=== PATIENT | male | born 1945 | race Caucasian/White ===

== ENCOUNTER 2021-04-09 12:58 | Inpatient (IN) | payer MEDICARE, OTHER ==
[2021-04-09] MEDS ORDERED: SODIUM CHLORIDE 0.9% 1,000 ML IV ONE (13:40)
[2021-04-09] MEDS ORDERED: SODIUM CHLORIDE 0.9% 500 ML 500 ML IV ONE (13:40)
--- NOTE | 2021-04-09 13:45 | ED ---
General Adult HPI - General Chief complaint: Altered Mental Status Stated complaint: hallucinations Time Seen by Provider: 04/09/21 13:35 Source: patient, EMS Mode of arrival: EMS Limitations: altered mental status - History of Present Illness Initial comments: This 76-year-old male presents with a complaint of having some visual hallucinations. He states that it has been present for the last 1 month. He denies any previous similar incidents. He states that he realizes that the things that he is seeing is not actually there. He denies any auditory hallucinations. He lives by himself and called EMS as he realized that something was not quite right. He does have a history of Parkinson's disease. He denies any headaches or head injury. He denies any chest pain, shortness breath, abdominal pain, or urinary symptoms. There is been no fevers or chills. He feels fine otherwise. No other complaints or modifying factors. - Related Data Home Medications Medication Instructions Recorded Confirmed Ascorbic Acid [Vitamin C] 500 mg PO DAILY 04/09/21 04/09/21 Carbidopa-Levodopa 25-100 mg 1 tab PO 5XD 04/09/21 04/09/21 [Sinemet 25-100] Vitamin D3(Unknown Dose) 1 tab PO DAILY 04/09/21 04/09/21 amantadine HCL [Amantadine] 100 mg PO BID 04/09/21 04/09/21 Allergies Allergy/AdvReac Type Severity Reaction Status Date / Time No Known Allergies Allergy Verified 04/09/21 14:59 Review of Systems ROS Statement: Those systems with pertinent positive or pertinent negative responses have been documented in the HPI. ROS Other: All systems not noted in ROS Statement are negative. Past Medical History Additional Past Medical History / Comment(s): Parkinson's History of Any Multi-Drug Resistant Organisms: None Reported Past Surgical History: Hernia Repair Past Psychological History: No Psychological Hx Reported Smoking Status: Never smoker Past Alcohol Use History: None Reported Past Drug Use History: None Reported General Exam - General Exam Comments Initial Comments: GENERAL: The patient is well nourished and well hydrated. VITAL SIGNS: Heart rate, blood pressure, respiratory rate reviewed as recorded in nurse's notes. EYES: Pupils are round and reactive. Extraocular movements are intact. No conjunctival / lid redness or swelling. ENT: No external evidence of injury, swelling, or ecchymosis. Airway is patent. Throat is clear. NECK: Nontender. No swelling or evidence of injury. No subcutaneous emphysema. Trachea is midline. No thyroid mass. HEART: Regular rate and rhythm. Good peripheral pulses. LUNGS/CHEST: Breath sounds clear and equal bilaterally. No rales, rhonchi, or wheezes. No ecchymosis, subcutaneous emphysema, or tenderness. ABDOMEN: Abdomen soft without tenderness. No palpable masses or organomegaly. No peritoneal signs. No abdominal wall swelling or ecchymosis. EXTREMITIES: No extremity tenderness. Normal muscle tone and function. No thoracolumbar tenderness. NEUROLOGIC: Sensation is grossly intact. Cranial nerve exam reveals face is symmetrical, tongue is midline, speech is clear. SKIN: No abrasions or ecchymosis is noted. No induration or masses noted. PSYCHIATRIC: Alert and oriented. Appropriate behavior and judgment. Limitations: altered mental status Course Vital Signs 04/09/21 04/09/21 13:02 16:12 Temperature 98.4 F Pulse Rate 97 97 Respiratory 18 18 Rate Blood Pressure 168/102 183/97 O2 Sat by Pulse 97 95 Oximetry Medical Decision Making - Medical Decision Making The patient was seen and examined. All diagnostics are reviewed. An IV is established and he is hydrated. The white blood cell count is slightly elevated but remainder of labs are essentially within normal limits. The urine is clear. The computed tomography scan of brain does not show any acute process. The EKG is completed and shows a sinus tachycardia at a rate of 102. There is no acute ST-T wave changes identified with mild artifact. The AK intervals 196, QRS duration is 74, and the QTC intervals 437. The exact cause of his hallucinations are not definitively determined. Overall, it is felt as though he would benefit from admission for further evaluation. Case is discussed with Dr. Friedman who does evaluate patient in the emergency department. He is admitted to his service with psychiatry to consult. The possibility of early dementia associated with his Parkinson's disease is certainly contemplated. He may benefit from some medication therapy as felt necessary per psychiatry. - Lab Data Result diagrams: 04/09/21 14:09 04/09/21 14:09 Lab Results 04/09/21 04/09/21 04/09/21 Range/Units 13:35 14:09 14:09 WBC 11.6 H (3.8-10.6) k/uL RBC 4.95 (4.30-5.90) m/uL Hgb 15.3 (13.0-17.5) gm/dL Hct 44.9 (39.0-53.0) % MCV 90.7 (80.0-100.0) fL MCH 31.0 (25.0-35.0) pg MCHC 34.2 (31.0-37.0) g/dL RDW 12.8 (11.5-15.5) % Plt Count 247 (150-450) k/uL MPV 7.3 Neutrophils % 75 % Lymphocytes % 14 % Monocytes % 6 % Eosinophils % 3 % Basophils % 1 % Neutrophils # 8.6 H (1.3-7.7) k/uL Lymphocytes # 1.6 (1.0-4.8) k/uL Monocytes # 0.7 (0-1.0) k/uL Eosinophils # 0.3 (0-0.7) k/uL Basophils # 0.1 (0-0.2) k/uL PT 10.5 (9.0-12.0) sec INR 1.0 (<1.2) APTT 25.5 (22.0-30.0) sec Sodium (137-145) mmol/L Potassium (3.5-5.1) mmol/L Chloride (98-107) mmol/L Carbon Dioxide (22-30) mmol/L Anion Gap mmol/L BUN (9-20) mg/dL Creatinine (0.66-1.25) mg/dL Est GFR (CKD-EPI)AfAm (>60 ml/min/1.73 sqM) Est GFR (CKD-EPI)NonAf (>60 ml/min/1.73 sqM) Glucose (74-99) mg/dL Calcium (8.4-10.2) mg/dL Total Bilirubin (0.2-1.3) mg/dL AST (17-59) U/L ALT (4-49) U/L Alkaline Phosphatase (38-126) U/L Ammonia (<30) umol/L Troponin I (0.000-0.034) ng/mL Total Protein (6.3-8.2) g/dL Albumin (3.5-5.0) g/dL Urine Color Yellow Urine Appearance Clear (Clear) Urine pH 6.5 (5.0-8.0) Ur Specific [place] 1.022 (1.001-1.035) Urine Protein Negative (Negative) Urine Glucose (UA) Negative (Negative) Urine Ketones Negative (Negative) Urine Blood Negative (Negative) Urine Nitrite Negative (Negative) Urine Bilirubin Negative (Negative) Urine Urobilinogen <2.0 (<2.0) mg/dL Ur Leukocyte Esterase Negative (Negative) Urine Opiates Screen (NotDetected) Ur Oxycodone Screen (NotDetected) Urine Methadone Screen (NotDetected) Ur Propoxyphene Screen (NotDetected) Ur Barbiturates Screen (NotDetected) U Tricyclic Antidepress (NotDetected) Ur Phencyclidine Scrn (NotDetected) Ur Amphetamines Screen (NotDetected) U Methamphetamines Scrn (NotDetected) U Benzodiazepines Scrn (NotDetected) Urine Cocaine Screen (NotDetected) U Marijuana (THC) Screen (NotDetected) 04/09/21 04/09/21 04/09/21 Range/Units 14:09 14:09 14:09 WBC (3.8-10.6) k/uL RBC (4.30-5.90) m/uL Hgb (13.0-17.5) gm/dL Hct (39.0-53.0) % MCV (80.0-100.0) fL MCH (25.0-35.0) pg MCHC (31.0-37.0) g/dL RDW (11.5-15.5) % Plt Count (150-450) k/uL MPV Neutrophils % % Lymphocytes % % Monocytes % % Eosinophils % % Basophils % % Neutrophils # (1.3-7.7) k/uL Lymphocytes # (1.0-4.8) k/uL Monocytes # (0-1.0) k/uL Eosinophils # (0-0.7) k/uL Basophils # (0-0.2) k/uL PT (9.0-12.0) sec INR (<1.2) APTT (22.0-30.0) sec Sodium 138 (137-145) mmol/L Potassium 4.1 (3.5-5.1) mmol/L Chloride 105 (98-107) mmol/L Carbon Dioxide 27 (22-30) mmol/L Anion Gap 6 mmol/L BUN 25 H (9-20) mg/dL Creatinine 0.69 (0.66-1.25) mg/dL Est GFR (CKD-EPI)AfAm >90 (>60 ml/min/1.73 sqM) Est GFR (CKD-EPI)NonAf >90 (>60 ml/min/1.73 sqM) Glucose 94 (74-99) mg/dL Calcium 9.2 (8.4-10.2) mg/dL Total Bilirubin 0.7 (0.2-1.3) mg/dL AST 20 (17-59) U/L ALT 8 (4-49) U/L Alkaline Phosphatase 80 (38-126) U/L Ammonia (<30) umol/L Troponin I <0.012 (0.000-0.034) ng/mL Total Protein 6.6 (6.3-8.2) g/dL Albumin 4.0 (3.5-5.0) g/dL Urine Color Urine Appearance (Clear) Urine pH (5.0-8.0) Ur Specific [place] (1.001-1.035) Urine Protein (Negative) Urine Glucose (UA) (Negative) Urine Ketones (Negative) Urine Blood (Negative) Urine Nitrite (Negative) Urine Bilirubin (Negative) Urine Urobilinogen (<2.0) mg/dL Ur Leukocyte Esterase (Negative) Urine Opiates Screen Not Detected (NotDetected) Ur Oxycodone Screen Not Detected (NotDetected) Urine Methadone Screen Not Detected (NotDetected) Ur Propoxyphene Screen Not Detected (NotDetected) Ur Barbiturates Screen Not Detected (NotDetected) U Tricyclic Antidepress Not Detected (NotDetected) Ur Phencyclidine Scrn Not Detected (NotDetected) Ur Amphetamines Screen Not Detected (NotDetected) U Methamphetamines Scrn Not Detected (NotDetected) U Benzodiazepines Scrn Not Detected (NotDetected) Urine Cocaine Screen Not Detected (NotDetected) U Marijuana (THC) Screen Not Detected (NotDetected) 04/09/21 Range/Units 14:09 WBC (3.8-10.6) k/uL RBC (4.30-5.90) m/uL Hgb (13.0-17.5) gm/dL Hct (39.0-53.0) % MCV (80.0-100.0) fL MCH (25.0-35.0) pg MCHC (31.0-37.0) g/dL RDW (11.5-15.5) % Plt Count (150-450) k/uL MPV Neutrophils % % Lymphocytes % % Monocytes % % Eosinophils % % Basophils % % Neutrophils # (1.3-7.7) k/uL Lymphocytes # (1.0-4.8) k/uL Monocytes # (0-1.0) k/uL Eosinophils # (0-0.7) k/uL Basophils # (0-0.2) k/uL PT (9.0-12.0) sec INR (<1.2) APTT (22.0-30.0) sec Sodium (137-145) mmol/L Potassium (3.5-5.1) mmol/L Chloride (98-107) mmol/L Carbon Dioxide (22-30) mmol/L Anion Gap mmol/L BUN (9-20) mg/dL Creatinine (0.66-1.25) mg/dL Est GFR (CKD-EPI)AfAm (>60 ml/min/1.73 sqM) Est GFR (CKD-EPI)NonAf (>60 ml/min/1.73 sqM) Glucose (74-99) mg/dL Calcium (8.4-10.2) mg/dL Total Bilirubin (0.2-1.3) mg/dL AST (17-59) U/L ALT (4-49) U/L Alkaline Phosphatase (38-126) U/L Ammonia 21 (<30) umol/L Troponin I (0.000-0.034) ng/mL Total Protein (6.3-8.2) g/dL Albumin (3.5-5.0) g/dL Urine Color Urine Appearance (Clear) Urine pH (5.0-8.0) Ur Specific [place] (1.001-1.035) Urine Protein (Negative) Urine Glucose (UA) (Negative) Urine Ketones (Negative) Urine Blood (Negative) Urine Nitrite (Negative) Urine Bilirubin (Negative) Urine Urobilinogen (<2.0) mg/dL Ur Leukocyte Esterase (Negative) Urine Opiates Screen (NotDetected) Ur Oxycodone Screen (NotDetected) Urine Methadone Screen (NotDetected) Ur Propoxyphene Screen (NotDetected) Ur Barbiturates Screen (NotDetected) U Tricyclic Antidepress (NotDetected) Ur Phencyclidine Scrn (NotDetected) Ur Amphetamines Screen (NotDetected) U Methamphetamines Scrn (NotDetected) U Benzodiazepines Scrn (NotDetected) Urine Cocaine Screen (NotDetected) U Marijuana (THC) Screen (NotDetected) Disposition Clinical Impression: Visual hallucinations, Parkinsons disease, Hypertension Disposition: ADMITTED IP TO THIS HOSP Condition: Fair Referrals: Jim Menchaca MD [Primary Care Provider] - 1-2 days Time of Disposition: 18:19 Decision Date: 04/09/21 Decision Time: 18:19
[2021-04-09 13:53] LABS: Appearance,Urine Clear (Clear); Bilirubin,Urine Negative (Negative); Blood,Urine Negative (Negative); Color,Urine Yellow; Glucose,Urine (UA) Negative (Negative); Ketones,Urine Negative (Negative); Leukocyte Esterase,Urine Negative (Negative); Nitrite,Urine Negative (Negative); PH, Urine 6.5 (5.0-8.0); Protein,Urine Negative (Negative); Specific Gravity,Urine 1.022 (1.001-1.035); Urobilinogen,Urine <2.0 mg/dL (<2.0)
[2021-04-09 14:35] LABS: Basophils # (A) 0.1 k/uL (0-0.2); Basophils % (A) 1 %; Eosinophils # (A) 0.3 k/uL (0-0.7); Eosinophils % (A) 3 %; HCT 44.9 % (39.0-53.0); HGB 15.3 gm/dL (13.0-17.5); Lymphocytes # (A) 1.6 k/uL (1.0-4.8); Lymphocytes % (A) 14 %; MCHC 34.2 g/dL (31.0-37.0); MCV 90.7 fL (80.0-100.0); Mean Platelet Volume 7.3; Monocytes # (A) 0.7 k/uL (0-1.0); Monocytes % (A) 6 %; Neutrophils # (A) 8.6 k/uL (1.3-7.7); Neutrophils % (A) 75 %; Platelet Count 247 k/uL (150-450); RBC 4.95 m/uL (4.30-5.90); RDW 12.8 % (11.5-15.5); WBC 11.6 k/uL (3.8-10.6)
[2021-04-09 14:44] LABS: Partial Thromboplastin Time 25.5 sec (22.0-30.0); Prothrombin Time 10.5 sec (9.0-12.0)
[2021-04-09 14:47] LABS: Amphetamine Screen,Urine Not Detected (NotDetected); Barbiturate Screen,Urine Not Detected (NotDetected); Benzodiazepines Screen,Urine Not Detected (NotDetected); Cocaine Screen,Urine Not Detected (NotDetected); Methadone Screen, Urine Not Detected (NotDetected); Opiate Screen,Urine Not Detected (NotDetected); Oxycodone Screen, Urine Not Detected (NotDetected); Phencyclidine Screen,Urine Not Detected (NotDetected); Tricyclic Antidepressant,Urine Not Detected (NotDetected); Urn Cannabinoid Scrn Not Detected (NotDetected)
--- NOTE | 2021-04-09 15:06 | CT ---
EXAMINATION TYPE: CT brain wo con DATE OF EXAM: 04/09/2021 COMPARISON: None HISTORY: altered mental status CT DLP: 1157.4 mGycm Automated exposure control for dose reduction was used. Helical imaging through the brain. FINDINGS: The calvarium is intact. Paranasal sinuses and mastoid air cells are well aerated. There is cortical atrophy present. No hemorrhage or hydrocephalus. Visualized orbits show a symmetric appearance. Periv entricular white matter shows patchy low attenuation. There are cerebral vascular calcifications pres ent. IMPRESSION: AGE-RELATED CHANGES OF ATROPHY AND CHRONIC SMALL VESSEL ISCHEMIA.
[2021-04-09 15:14] LABS: ALT 8 U/L (4-49); AST 20 U/L (17-59); African American GFR (CKD) >90 (>60 ml/min/1.73 sqM); Alkaline Phosphatase 80 U/L (38-126); Anion Gap 6 mmol/L; Blood Urea Nitrogen 25 mg/dL (9-20); Calcium 9.2 mg/dL (8.4-10.2); Carbon Dioxide 27 mmol/L (22-30); Chloride 105 mmol/L (98-107); Glucose 94 mg/dL (74-99); Non-African American GFR(CKD) >90 (>60 ml/min/1.73 sqM); Potassium 4.1 mmol/L (3.5-5.1); Sodium 138 mmol/L (137-145); Total Bilirubin 0.7 mg/dL (0.2-1.3); Total Protein 6.6 g/dL (6.3-8.2)
[2021-04-09] MEDS ORDERED: ALPRAZolam 0.25 MG TAB PO PRN (18:21)
[2021-04-09] MEDS ORDERED: ACETAMINOPHEN TAB 325 MG TAB PO PRN (18:21)
[2021-04-09] MEDS ORDERED: ONDANSETRON 4 MG/2 ML VIAL IVP PRN (18:21)
[2021-04-09] MEDS: CARBIDOPA-LEVODOPA 25-100 MG 1 EACH TAB PO SCH ×2 (20:29→23:26)
[2021-04-10] MEDS: CARBIDOPA-LEVODOPA 25-100 MG 1 EACH TAB PO SCH ×5 (05:24→23:23)
[2021-04-10] MEDS: ASCORBIC ACID 500 MG TAB PO SCH (07:36)
[2021-04-10] MEDS: PANTOPRAZOLE 40 MG/10 ML VIAL IV SCH (07:36)
[2021-04-10] MEDS: CHOLECALCIFEROL 25 MCG (1000 IU) TABLET PO SCH (07:36)
[2021-04-10] MEDS: ENOXAPARIN 40 MG/0.4 ML SYRINGE SQ SCH (07:37)
--- NOTE | 2021-04-10 14:40 | P.HPIM ---
History of Present Illness H&P Date: 04/09/21 Chief Complaint: Hallucinations History of presenting complaint: This is a 76-year-old patient is on the ER. Follows with Dr. Rolle. Chronic stable medical conditions include Parkinson, gait dysfunction, some forgetfulness. Patient now presents with hearing and seeing things. He hears voices. Also getting nightmares. Sometimes he sees figures. No fever no chills. His Parkinson's is relatively under control. Decided to going on for about 2 weeks. No suicidal or homicidal ideation. Oral intake is fair. Bowels and urine output is good. No depression some anxiety. Review of systems: GEN.: Tired EYES: None HEENT: None NECK: None RESPIRATORY: None CARDIOVASCULAR: None GASTROINTESTINAL: None GENITOURINARY: None MUSCULOSKELETAL: None LYMPHATICS: None HEMATOLOGICAL: None PSYCHIATRY: As above NEUROLOGICAL: [Tremors, some rigidity Past medical history to include: Parkinson disease, gait dysfunction and some cognitive impairment Social history: No smoking or alcohol. Lives alone. Gets help from a friend and sister Family history: Reviewed, noncontributory to presentation Physical examination: VITAL SIGNS: 98.6, 97, 20, 1 66 x 95, 95% room air GENERAL: Sitting up in a chair, awake. EYES: Pupils equal. Conjunctiva normal. HEENT: External appearance of nose and ears normal, oral cavity grossly normal. NECK: JVD not raised; masses not palpable. HEART: First and second heart sounds are normal; no edema. LUNGS: Respiratory rate normal; clear to auscultation. ABDOMEN: Soft, nontender, liver spleen not palpable, no masses palpable. PSYCH: Patient is able to answer simple questions. Currently no hallucinations.l. NEUROLOGICAL: Cranial nerves grossly intact; no facial asymmetry, cogwheel rigidity present. Predominant tremor. LYMPHATICS: No lymph nodes palpable in the axilla and neck INVESTIGATIONS, reviewed in the clinical context: WBC [age]-year-old woman 15.3 platelets 247 potassium 4.1 creatinine 0.69 UA negative Urine drug screen negative Coronavirus [PCR]: Negative EKG tracing personally reviewed by me-sinus tachycardia Computed tomography scan of the brain: Age-related atrophy and chronic small vessel ischemia. Assessment and plan: -New onset of hallucinations both on decreased visual. Likely precipitated by Parkinson's. Psychiatry consulted for medications. Patient has some associated anxiety. -Idiopathic Parkinson disorder Continue with home medications to include Sinemet and amantadine -Chronic gait dysfunction Patient at baseline unsteady on his gait. Does not use any obvious supportive device. 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 Consult psychiatry. Care was discussed with the patient. Follow closely. Fall precautions - Past Medical History Past Medical History: Unable to Obtain Additional Past Medical History / Comment(s): Parkinson's History of Any Multi-Drug Resistant Organisms: None Reported Past Surgical History: Unable to Obtain, Hernia Repair Past Anesthesia/Blood Transfusion Reactions: Unable to Obtain Past Psychological History: No Psychological Hx Reported, Unable to Obtain Smoking Status: Never smoker Past Alcohol Use History: None Reported Past Drug Use History: None Reported Medications and Allergies Home Medications Medication Instructions Recorded Confirmed Type Ascorbic Acid [Vitamin C] 500 mg PO DAILY 04/09/21 04/09/21 History Carbidopa-Levodopa 25-100 mg 1 tab PO 5XD 04/09/21 04/09/21 History [Sinemet 25-100] Vitamin D3(Unknown Dose) 1 tab PO DAILY 04/09/21 04/09/21 History amantadine HCL [Amantadine] 100 mg PO BID 04/09/21 04/09/21 History Allergies Allergy/AdvReac Type Severity Reaction Status Date / Time No Known Allergies Allergy Verified 04/09/21 14:59 Physical Exam Vitals: Vital Signs Temp Pulse Pulse Resp BP BP Pulse Ox 04/10/21 07:41 98.2 F 78 18 135/75 96 04/10/21 02:46 97.7 F 80 18 153/82 97 04/09/21 21:30 98.3 F 94 17 172/81 97 04/09/21 20:10 97 20 166/95 95 04/09/21 18:48 98.6 F 98 18 170/85 96 04/09/21 16:12 97 18 183/97 95 Intake and Output 04/09/21 04/10/21 04/10/21 22:59 06:59 14:59 Other: Voiding Method Urinal Urinal # Voids 5 # Bowel Movements 3 Weight 73.482 kg Results CBC & Chem 7: 04/09/21 14:09 04/09/21 14:09 Labs: Abnormal Lab Results - Last 24 Hours (Table) 04/09/21 04/09/21 Range/Units 14:09 14:09 WBC 11.6 H (3.8-10.6) k/uL Neutrophils # 8.6 H (1.3-7.7) k/uL BUN 25 H (9-20) mg/dL Thrombosis Risk Factor Assmnt - Choose All That Apply Any of the Below Risk Factors Present?: No Other Risk Factors: Yes Each Risk Factor Represents 3 Points: Age 75 years or older Other congenital or acquired thrombophilia - If yes, enter type in comment: No Thrombosis Risk Factor Assessment Total Risk Factor Score: 3 Thrombosis Risk Factor Assessment Level: Moderate Risk
--- NOTE | 2021-04-10 14:45 | P.PN ---
Progress Note - Text Progress Note Date: 04/10/21 Chief Complaint: Hallucinations History of presenting complaint: This is a 76-year-old patient is on the ER. Follows with Dr. Rolle. Chronic stable medical conditions include Parkinson, gait dysfunction, some forgetfulness. Patient now presents with hearing and seeing things. He hears voices. Also getting nightmares. Sometimes he sees figures. No fever no chills. His Parkinson's is relatively under control. Decided to going on for about 2 weeks. No suicidal or homicidal ideation. Oral intake is fair. Bowels and urine output is good. No depression some anxiety. Today: Sitting up eating. Had a good sleep. Had no hallucinations. Review of systems: Was done for constitutional, cardiovascular, GI, pulmonary. relevant finding as above Active Medications Acetaminophen (Acetaminophen Tab 325 Mg Tab) 650 mg PO Q6HR PRN PRN Reason: Mild Pain or Fever > 100.5 Alprazolam (Alprazolam 0.25 Mg Tab) 0.25 mg PO Q6HR PRN PRN Reason: Anxiety Amantadine HCl (Amantadine Hcl 100 Mg Cap) 100 mg PO BID [facility] Last Admin: 04/10/21 11:48 Dose: 100 mg Documented by: Ascorbic Acid (Ascorbic Acid 500 Mg Tab) 500 mg PO DAILY [facility] Last Admin: 04/10/21 07:36 Dose: 500 mg Documented by: Carbidopa/Levodopa (Carbidopa-Levodopa 25-100 Mg 1 Each Tab) 1 each PO 5XD [facility] Last Admin: 04/10/21 11:48 Dose: 1 each Documented by: Cholecalciferol (Cholecalciferol 25 Mcg (1000 Iu) Tablet) 25 mcg PO DAILY [facility] Last Admin: 04/10/21 07:36 Dose: 25 mcg Documented by: Enoxaparin Sodium (Enoxaparin 40 Mg/0.4 Ml Syringe) 40 mg SQ DAILY [facility] Last Admin: 04/10/21 07:37 Dose: 40 mg Documented by: Ondansetron HCl (Ondansetron 4 Mg/2 Ml Vial) 4 mg IVP Q8HR PRN PRN Reason: Nausea And Vomiting Pantoprazole Sodium (Pantoprazole 40 Mg/10 Ml Vial) 40 mg IV DAILY [facility] Last Admin: 04/10/21 07:36 Dose: 40 mg Documented by: Past medical history to include: Parkinson disease, gait dysfunction and some cognitive impairment Social history: No smoking or alcohol. Lives alone. Gets help from a friend and sister Family history: Reviewed, noncontributory to presentation Physical examination: VITAL SIGNS: 98.2, 78, 18, 135/75, 96% room air GENERAL: Sitting up in a chair, eating EYES: Pupils equal. Conjunctiva normal. NECK: JVD not raised; masses not palpable. HEART: First and second heart sounds are normal; no edema. LUNGS: Respiratory rate normal; clear to auscultation. ABDOMEN: Soft, nontender, liver spleen not palpable, no masses palpable. PSYCH: Patient is able to answer simple questions. Currently no hallucinations.l. NEUROLOGICAL: cogwheel rigidity present. Predominant tremor. INVESTIGATIONS, reviewed in the clinical context: WBC 11. hemoglobin 15.3 platelets 247 potassium 4.1 creatinine 0.69 UA negative Urine drug screen negative Coronavirus [PCR]: Negative EKG tracing personally reviewed by me-sinus tachycardia Computed tomography scan of the brain: Age-related atrophy and chronic small vessel ischemia. Assessment and plan: -New onset of hallucinations both on decreased visual. Likely precipitated by Parkinson's. Psychiatry consulted for medications. Patient has some associated anxiety. -Idiopathic Parkinson disorder Continue with home medications to include Sinemet and amantadine -Chronic gait dysfunction Patient at baseline unsteady on his gait. Does not use any obvious supportive device. 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 Await input from psychiatry. -
[2021-04-10] MEDS: OLANZapine 2.5 MG TAB PO SCH ×2 (17:51→20:16)
[2021-04-11] MEDS: LORazepam 2 MG/ML INJ IV PRN ×2 (06:26→09:48)
--- NOTE | 2021-04-11 07:29 | CONS ---
CONSULTATION DATE OF SERVICE: 04/10/2021 PURPOSE FOR CONSULTATION: Evaluate for auditory and visual hallucinations and nightmares. HISTORY OF PRESENTING ILLNESS: The patient is a 76-year-old male. He was admitted to the medical floor for auditory and visual hallucinations along with nightmares. It is noted that he lives independently. He was at home. He called his son with concern about hallucinations he was having. The son got to the patient's house within an hour and a half. The patient had already called EMS and had gotten to the hospital. He has a history of Parkinson disease. He has been relatively stable on Sinemet 25-100 1 tablet 5 times a day and amantadine 100 mg twice a day. The patient stated that he was having auditory hallucinations for about 1 month though as we talked he seemed to suggest that this may have been occurring intermittently for a longer period and one month. He also began experiencing visual hallucinations of seeing people and objects. He was somewhat vague about that experience. It seemed to suggest he was likely there for at least 1 month and if not more. He said that he would have these experiences for a few days at a time and that it would be intermittent through the day. He then might have some days where he did not have any of those experiences and then they would come back. He also noted to having nightmares. His son was with him and indicated that also he would have times in the daytime where he would be sitting and will slip off to sleep, though in the midst of that would have activity such as leg movements pretty much mimicking walking. The patient indicated that he had some nightmares, though he was vague on particulars of that. The patient has not had a history of any psychiatric issues in the past. He has been maintaining a good mood. He has not had significant problems with function. He is ambulatory. He has not had significant problems with anxiety. He does tend to sleep only about 4 to 5 hours at a time at night, though he does nap intermittently in the day. He has not been on any psychotropic medications at home prior to his hospitalization and only was on amantadine and Sinemet as his only psychoactive medications. He has not been on any psychotropic medications in the past. MENTAL STATUS: Patient was sitting in a chair. His son was with him. He gave fairly good eye contact. He was somewhat restless. He responded to questions appropriately. It was noteworthy that after about 15 minutes of discussion, the patient did seem to drift off and closed his eyes and became somnolent. He was able to be aroused and responded to some photographs that he was shown. For the most part, he smiled and was in quite good humor. He responded well to humerus contacts and had a friendly manner. His affect was broad. His mood was even. He was not depressed or distressed in any way. On cognitive exam, he knew the day and date without difficulty. He could tell me where he was and the issues related to his hospitalization. Information he provided was accurate as reflected in the medical record. ASSESSMENT: This 76-year-old male is experiencing auditory and visual hallucinations, most likely secondary to either Parkinson disease or Sinemet. Antipsychotic medications have been helpful in addressing these issues. It is noted that Seroquel has had a fair number of studies in this regard, though my concern with Seroquel is it does have an increased incidence of extrapyramidal side effects compared to other antipsychotics. Clozapine has been the most effective medication in this regard, though the use of clozapine is more complicated related to blood work required. At this point, I will start the patient on Zyprexa 2.5 mg twice a day. Zyprexa is a direct analog of clozapine and has the lowest incidence of EPS in 2nd generation antipsychotics. I would look for improvement in reduction symptoms as early as the next 3 or 4 days. If he continued to have problems, there might be reason to titrate up on his medication to possibly 5 mg twice a day. If he does show good response to the medication, over a few weeks, he could be switched to having taking all his medicine at bedtime to simplify his medications. The patient indicated that he has an appointment with Dr. Julien on Tuesday. For the most part, the patient has been fairly stable since his admission and if he remains so, I would expect he might be discharged before the weekend is out. I would recommend caution in use of Xanax and would not recommend he be prescribed Xanax on an outpatient basis given its risk for motor and memory impairment where he might have problems with coordination, balance, and falls or altered mental status and confusion. If there are any issues that arise, I would encourage Dr. Friedman to contact me directly. I will not be in the hospital for the next 10 days, but am able to talk at any point regarding his hospital care. ENRIQUE / HENRY: [id number] /
[2021-04-11] MEDS: PANTOPRAZOLE 40 MG/10 ML VIAL IV SCH (09:49)
--- NOTE | 2021-04-11 14:14 | P.CON ---
Consult Note - . 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 Interim history: I reviewed the medical record, spoke to his nurse and attempted to interview the patient. His attending, Dr. Friedman, requested a reevaluation due to increasing confusion, agitation and sedation since we recommended to start 2.5 mg twice a day. He was unresponsive. He was placed in soft restraints a state due to the agitation and confusion. He also received 1 mg of Ativan IM this morning due to his behavioral changes. His nurse reported a marked change of his mental status over the last 24 hours. Mental status exam: He presented as a thin elderly male who is lying in bed. He was undressed except for diapers. He had one arm and soft restraint. He was not responsive to verbal stimuli. He is mumbling incoherently. Assessment: The confusion, sedation and agitation may be related olanzapine. Plan: She will follow up. Discontinue olanzapine to 5 mg twice a day. Due to his cognitive impairment and minimize use of sedatives including benzodiazepines. His cognitive status improves determine whether it's important to treat psychotic symptoms. As such consider Seroquel or clozapine.
[2021-04-11] MEDS: CARBIDOPA-LEVODOPA 25-100 MG 1 EACH TAB PO SCH ×4 (15:45→22:26)
[2021-04-11] MEDS: CHOLECALCIFEROL 25 MCG (1000 IU) TABLET PO SCH (15:46)
[2021-04-11] MEDS: ASCORBIC ACID 500 MG TAB PO SCH (15:46)
[2021-04-11] MEDS: ENOXAPARIN 40 MG/0.4 ML SYRINGE SQ SCH (17:26)
--- NOTE | 2021-04-11 17:40 | P.PN ---
Progress Note - Text Progress Note Date: 04/11/21 Chief Complaint: Hallucinations History of presenting complaint: This is a 76-year-old patient is on the ER. Follows with Dr. Rolle. Chronic stable medical conditions include Parkinson, gait dysfunction, some forgetfulness. Patient now presents with hearing and seeing things. He hears voices. Also getting nightmares. Sometimes he sees figures. No fever no chills. His Parkinson's is relatively under control. Decided to going on for about 2 weeks. No suicidal or homicidal ideation. Oral intake is fair. Bowels and urine output is good. No depression some anxiety. Patient was seen by Dr. Morgan from psychiatry. Zyprexa 2.5 mg twice daily was started. Today: Overnight patient became very agitated delirious. Had to be given Ativan. This morning patient is very sedated. Laying in bed. I spoke to Dr. Galicia from psychiatry. He will discontinue the Zyprexa for now. Review of systems: Patient sedated and unable to do so Active Medications Acetaminophen (Acetaminophen Tab 325 Mg Tab) 650 mg PO Q6HR PRN PRN Reason: Mild Pain or Fever > 100.5 Amantadine HCl (Amantadine Hcl 100 Mg Cap) 100 mg PO BID [facility] Last Admin: 04/11/21 15:45 Dose: Not Given Documented by: Ascorbic Acid (Ascorbic Acid 500 Mg Tab) 500 mg PO DAILY [facility] Last Admin: 04/11/21 15:46 Dose: Not Given Documented by: Carbidopa/Levodopa (Carbidopa-Levodopa 25-100 Mg 1 Each Tab) 1 each PO 5XD [facility] Last Admin: 04/11/21 17:29 Dose: Not Given Documented by: Cholecalciferol (Cholecalciferol 25 Mcg (1000 Iu) Tablet) 25 mcg PO DAILY [facility] Last Admin: 04/11/21 15:46 Dose: Not Given Documented by: Enoxaparin Sodium (Enoxaparin 40 Mg/0.4 Ml Syringe) 40 mg SQ DAILY [facility] Last Admin: 04/11/21 17:26 Dose: 40 mg Documented by: Lorazepam (Lorazepam 2 Mg/Ml Inj) 1 mg IV Q2HR PRN PRN Reason: Anxiety Last Admin: 04/11/21 09:48 Dose: 1 mg Documented by: Ondansetron HCl (Ondansetron 4 Mg/2 Ml Vial) 4 mg IVP Q8HR PRN PRN Reason: Nausea And Vomiting Past medical history to include: Parkinson disease, gait dysfunction and some cognitive impairment Social history: No smoking or alcohol. Lives alone. Gets help from a friend and sister Family history: Reviewed, noncontributory to presentation Physical examination: VITAL SIGNS: 98, 92, 18, 123/77, 93% room air GENERAL: Sedated, laying in bed EYES: Pupils equal. Conjunctiva normal. NECK: JVD not raised; masses not palpable. HEART: First and second heart sounds are normal; no edema. LUNGS: Respiratory rate normal; clear to auscultation. ABDOMEN: Soft, nontender, liver spleen not palpable, no masses palpable. PSYCH: Unable to assess patient sedated. NEUROLOGICAL: cogwheel rigidity present. Predominant tremor. INVESTIGATIONS, reviewed in the clinical context: WBC 11. hemoglobin 15.3 platelets 247 potassium 4.1 creatinine 0.69 UA negative Urine drug screen negative Coronavirus [PCR]: Negative EKG tracing personally reviewed by me-sinus tachycardia Computed tomography scan of the brain: Age-related atrophy and chronic small vessel ischemia. Assessment and plan: -New onset of hallucinations both under tree and visual visual. Likely precipitated by Parkinson's. Psychiatry consulted for medications. Was started on Zyprexa. Patient became rather agitated and delirious. Discontinued -Acute onset of delirium and agitation possibly related to Zyprexa Discontinued -Idiopathic Parkinson disorder Continue with home medications to include Sinemet and amantadine -Chronic gait dysfunction Patient at baseline unsteady on his gait. Does not use any obvious supportive device. 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 Discussed with psychiatry. IV fluids. Follow clinically. Labs in the morning -
[2021-04-11] MEDS: SODIUM CHLORIDE 0.9% 1,000 ML IV SCH (21:02)
[2021-04-12] MEDS: CARBIDOPA-LEVODOPA 25-100 MG 1 EACH TAB PO SCH ×6 (02:29→23:24)
[2021-04-12 06:52] LABS: African American GFR (CKD) >90 (>60 ml/min/1.73 sqM); Anion Gap 11 mmol/L; Blood Urea Nitrogen 29 mg/dL (9-20); Calcium 9.1 mg/dL (8.4-10.2); Carbon Dioxide 22 mmol/L (22-30); Chloride 106 mmol/L (98-107); Glucose 60 mg/dL (74-99); Non-African American GFR(CKD) 88 (>60 ml/min/1.73 sqM); Potassium 3.5 mmol/L (3.5-5.1); Sodium 139 mmol/L (137-145)
[2021-04-12 07:56] LABS: Glucose,Whole Blood 76 mg/dL (75-99)
[2021-04-12] MEDS: CHOLECALCIFEROL 25 MCG (1000 IU) TABLET PO SCH (09:14)
[2021-04-12] MEDS: SODIUM CHLORIDE 0.9% 1,000 ML IV SCH ×2 (09:14→20:46)
[2021-04-12] MEDS: ASCORBIC ACID 500 MG TAB PO SCH (09:14)
[2021-04-12] MEDS: ENOXAPARIN 40 MG/0.4 ML SYRINGE SQ SCH (09:14)
--- NOTE | 2021-04-12 13:35 | P.CON ---
Consult Note - . 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 Both his nurse and Dr. Friedman report that his mental status has improved markedly after we discontinued olanzapine. The patient was sitting up in a chair eating lunch. He made eye contact and appeared to attend to interview. He has no recollection of our encounter yesterday. Today, he denied experiencing auditory or visual hallucinations. Mental status exam: He presented as a thin elderly male who was alert and oriented to person. He made eye contact. He showed moderate involuntary movements involving the limbs. His speech was tenuous and slightly dysarthric. His affect was blunted. He did not express ideas reference or paranoid ideation. His thinking was concrete but goal directed. He denied hallucinations did not appear to responding to internal stimuli. Assessment: His overall clinical status has improved over the last 24 hours. Plan: Due to his cognitive impairment and minimize use of sedatives including benzodiazepines. Consider treatment with an antipsychotic only if absolutely ne cessary (the psychotic symptoms are causing marked impairment in functioning or distress for the patient or caregivers). If treatment with antipsychotic is necessary consider the those least likely to worsen Parkinson's symptoms such as Seroquel or clozapine. Psychiatry will sign off on the case.
--- NOTE | 2021-04-12 14:26 | P.PN ---
Progress Note - Text Progress Note Date: 04/12/21 Chief Complaint: Hallucinations History of presenting complaint: This is a 76-year-old patient is on the ER. Follows with Dr. Rolle. Chronic stable medical conditions include Parkinson, gait dysfunction, some forgetfulness. Patient now presents with hearing and seeing things. He hears voices. Also getting nightmares. Sometimes he sees figures. No fever no chills. His Parkinson's is relatively under control. Decided to going on for about 2 weeks. No suicidal or homicidal ideation. Oral intake is fair. Bowels and urine output is good. No depression some anxiety. Patient was seen by Dr. Morgan from psychiatry. Zyprexa 2.5 mg twice daily was started. Patient became rather agitated delirious with Zyprexa. It was discontinued. Today: Patient doing better this morning. Up in a chair. More tired. Did eat some. answering some questions Review of systems: Was done for constitutional, cardiovascular, GI, pulmonary. relevant finding as above Active Medications Acetaminophen (Acetaminophen Tab 325 Mg Tab) 650 mg PO Q6HR PRN PRN Reason: Mild Pain or Fever > 100.5 Amantadine HCl (Amantadine Hcl 100 Mg Cap) 100 mg PO BID [facility] Last Admin: 04/12/21 09:14 Dose: 100 mg Documented by: Ascorbic Acid (Ascorbic Acid 500 Mg Tab) 500 mg PO DAILY [facility] Last Admin: 04/12/21 09:14 Dose: 500 mg Documented by: Carbidopa/Levodopa (Carbidopa-Levodopa 25-100 Mg 1 Each Tab) 1 each PO 5XD [facility] Last Admin: 04/12/21 09:14 Dose: 1 each Documented by: Cholecalciferol (Cholecalciferol 25 Mcg (1000 Iu) Tablet) 25 mcg PO DAILY [facility] Last Admin: 04/12/21 09:14 Dose: 25 mcg Documented by: Enoxaparin Sodium (Enoxaparin 40 Mg/0.4 Ml Syringe) 40 mg SQ DAILY [facility] Last Admin: 04/12/21 09:14 Dose: 40 mg Documented by: Sodium Chloride (Saline 0.9%) 1,000 mls @ 100 mls/hr IV .Q10H [facility] Last Admin: 04/12/21 09:14 Dose: 100 mls/hr Documented by: Lorazepam (Lorazepam 2 Mg/Ml Inj) 1 mg IV Q2HR PRN PRN Reason: Anxiety Last Admin: 04/11/21 09:48 Dose: 1 mg Documented by: Ondansetron HCl (Ondansetron 4 Mg/2 Ml Vial) 4 mg IVP Q8HR PRN PRN Reason: Nausea And Vomiting Past medical history to include: Parkinson disease, gait dysfunction and some cognitive impairment Social history: No smoking or alcohol. Lives alone. Gets help from a friend and sister Family history: Reviewed, noncontributory to presentation Physical examination: VITAL SIGNS: 97.6, 76, 16, 163/81, 99% room air GENERAL: More awake, sitting up in a chair, tired EYES: Pupils equal. Conjunctiva normal. NECK: JVD not raised; masses not palpable. HEART: First and second heart sounds are normal; no edema. LUNGS: Respiratory rate normal; clear to auscultation. ABDOMEN: Soft, nontender, liver spleen not palpable, no masses palpable. PSYCH: Answering simple questions NEUROLOGICAL: cogwheel rigidity present. Predominant tremor. INVESTIGATIONS, reviewed in the clinical context: WBC 11. hemoglobin 15.3 platelets 247 potassium 4.1 creatinine 0.69 UA negative Urine drug screen negative Coronavirus [PCR]: Negative EKG tracing personally reviewed by me-sinus tachycardia Computed tomography scan of the brain: Age-related atrophy and chronic small vessel ischemia. Assessment and plan: -New onset of hallucinations both under tree and visual visual. Likely precipitated by Parkinson's. Psychiatry started on Zyprexa. Caused agitated and delirious. Discontinued. Keep off antipsychotics for now. -Acute onset of delirium and agitation possibly related to Zyprexa-better Discontinued -Idiopathic Parkinson disorder-worsening Continue with home medications to include Sinemet and amantadine -Chronic gait dysfunction, with acute worsening Patient at baseline unsteady on his gait. Does not use any obvious supportive device. PTOT consult. 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 Keep off antipsychotics. PTOT. And melatonin at night. -
[2021-04-12] MEDS ORDERED: MELATONIN 1 MG TAB PO SCH (21:00)
[2021-04-13] MEDS: CARBIDOPA-LEVODOPA 25-100 MG 1 EACH TAB PO SCH ×2 (05:23→10:54)
[2021-04-13] MEDS: ENOXAPARIN 40 MG/0.4 ML SYRINGE SQ SCH (08:20)
[2021-04-13] MEDS: ASCORBIC ACID 500 MG TAB PO SCH (08:21)
[2021-04-13] MEDS: CHOLECALCIFEROL 25 MCG (1000 IU) TABLET PO SCH (08:21)
--- NOTE | 2021-04-13 13:56 | P.DS ---
Providers Date of admission: 04/09/21 18:21 Expected date of discharge: 04/13/21 Attending physician: Sergei Friedman Consults: 04/09/21 18:23 Consult Physician Routine Consulting Provider: Channing Jordan Consult Reason/Comments: hallucinations Do you want consulting provider notified?: Yes Primary care physician: Jim Melchor [facility] Course: Final diagnosis New onset hallucinations possibly precipitated by Parkinson's, improving Idiopathic Parkinson disorder Acute onset of delirium and agitation possibly related to medication Chronic gait dysfunction, worsening 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 Patient will follow- up with Dr. Trejo in the outpatient setting upon discharge. Total time taken is greater than 35 minutes. Hospital course This is a 76-year-old male who was recently admitted with hallucinations along with possible worsening Parkinson's and was being closely monitored. Patient was seen and evaluated by psychiatry and started briefly on Zyprexa although became more agitated and more delirious and was discontinued. Patient will continue Sinemet and prescribed medications. Patient will be going to [facility] upon discharge. Patient will continue on Sinemet and amantadine and avoid antipsychotics at this time. Currently no reports of chest pain, shortness of breath, or palpitations. Patient is afebrile. No reports of nausea or vomiting and patient is tolerating diet. Patient will be going to [facility] today. On exam vital signs are stable. Cardio S1, S2 are muffled. Respiratory system shows diminished breath sounds at the bases with no wheezing or rhonchi noted. Abdomen is soft and nontender. Nervous system shows diffuse weakness. Please refer to medication reconciliation sheet for a list of medications. Patient Condition at Discharge: Fair Plan - Discharge Summary New Discharge Prescriptions: New Melatonin 2 mg PO HS tab Acetaminophen Tab [Tylenol] 650 mg PO Q6HR PRN tab PRN Reason: Mild Pain Or Fever > 100.5 Continue Ascorbic Acid [Vitamin C] 500 mg PO DAILY Vitamin D3(Unknown Dose) 1 tab PO DAILY amantadine HCL [Amantadine] 100 mg PO BID Carbidopa-Levodopa 25-100 mg [Sinemet 25-100 mg] 1 tab PO 5XD Discharge Medication List Ascorbic Acid [Vitamin C] 500 mg PO DAILY 04/09/21 [History] Carbidopa-Levodopa 25-100 mg [Sinemet 25-100 mg] 1 tab PO 5XD 04/09/21 [History] Vitamin D3(Unknown Dose) 1 tab PO DAILY 04/09/21 [History] amantadine HCL [Amantadine] 100 mg PO BID 04/09/21 [History] Acetaminophen Tab [Tylenol] 650 mg PO Q6HR PRN tab 04/13/21 [Rx] Melatonin 2 mg PO HS tab 04/13/21 [Rx] Follow up Appointment(s)/Referral(s): Jim Menchaca MD [Primary Care Provider] - 1-2 days Activity/Diet/Wound Care/Special Instructions: Patient will be going to [facility] [facility] as tolerated Continue regular diet follow up with primary care provider upon discharge Discharge Disposition: TRANSFER TO SNF/ECF
[2021-04-13 14:30] VITALS: BP 116/66; PULSE 77; RESP 17; TEMP 98.4
== END 2021-04-13 14:39 | DRG 57 ==
LOC: EC 12:58 → 4SSUR 18:21
PROVIDERS: ADMIT Hospitalist; ATTEND Hospitalist
DX: G20 Parkinson's disease (principal); R44.1 Visual hallucinations; Z20.822 Contact with and (suspected) exposure to COVID-19; F51.5 Nightmare disorder; G31.84 Mild cognitive impairment of uncertain or unknown etiology; F41.9 Anxiety disorder, unspecified; I10 Essential (primary) hypertension; Z78.1 Physical restraint status; F29 Unspecified psychosis not due to a substance or known physiological condition; R41.0 Disorientation, unspecified; T43.595A Adverse effect of other antipsychotics and neuroleptics, initial encounter
CPT/HCPCS: 36415; 70450; 80048; 80053; 80306; 81003; 82140; 84484; 85025; 85610; 85730; 87635; 93005; 96360; 96361; 99285